=== PATIENT | male | born 1940 | race Caucasian/White ===

== ENCOUNTER 2017-03-30 10:03 | Outpatient (CLI) | payer MEDICARE ==
[2017-03-30 20:24] LABS: THYROID STIMULATING HORMONE 5.49 uIU/mL (0.34-5.60)
[2017-03-30 20:42] LABS: HEMOGLOBIN A1C 0.75 g/dL
== END 2017-03-30 10:04 | disposition home or self-care (01) ==
LOC: LAB.WCP 10:03
PROVIDERS: ATTEND Family Medicine
DX: G62.9 Polyneuropathy, unspecified (principal)
CPT/HCPCS: 36415; 82607; 82746; 83036; 84443

== ENCOUNTER 2017-06-23 14:49 | Emergency (ER) | payer MEDICARE ==
[2017-06-23 14:58] VITALS: BP 172/69
[2017-06-23] MEDS ORDERED: HYDROcod/ACETAM 5/325 MG TABLET PO STA (15:09)
--- NOTE | 2017-06-23 15:12 | ED Physician Documentation ---
History of Present Illness - Stated complaint Stated Complaint: RIGHT RIB PX - Chief complaint Chief Complaint: General - History obtained from History obtained from: Patient, Family () - History of Present Illness Timing: Other (He has had an ongoing cough for quite some time, not too bad and minimally productive. About 2 days ago he felt a severe pain during the cough which got even worse today. He is not short of breath per se. The pain is on the right chest wall and is worse with moving or deep breathing.) Review of Systems Constitutional: denies: Fever, Chills Nose: denies: Rhinorrhea / runny nose, Congestion Cardiac: reports: Chest pain / pressure. denies: Palpitations Respiratory: reports: Cough. denies: Dyspnea, Hemoptysis, Wheezing GI: denies: Abdominal Pain, Nausea, Vomiting PD PAST MEDICAL HISTORY - Past Medical History Cardiovascular: Hypertension, High cholesterol Respiratory: None Endocrine/Autoimmune: None GI: None : None HEENT: None Psych: None Musculoskeletal: None Derm: None - Past Surgical History General: Appendectomy Cardiovascular: CABG - Present Medications Home Medications: Ambulatory Orders Medication Instructions Recorded Confirmed Aspirin 81 mg PO DAILY 04/02/15 04/02/15 Felodipine [Felodipine ER] 1 tab PO DAILY 04/02/15 04/02/15 Finasteride 1 tab PO DAILY 04/02/15 04/02/15 Losartan/Hydrochlorothiazide 1 tab PO DAILY 04/02/15 04/02/15 [Losartan-Hctz 100-12.5 mg Tab] Lovastatin 1 tab PO DAILY 04/02/15 04/02/15 Metoprolol Succinate 1 tab PO DAILY 04/02/15 04/02/15 Terazosin [Hytrin] 1 tab PO DAILY 04/02/15 04/02/15 Albuterol Sulfate [Proair Hfa] 8.5 gm IH DAILY PRN 04/05/15 04/05/15 Azelastine HCl [Astelin] 137 mcg NS DAILY PRN 04/05/15 04/05/15 Fluticasone Propionate [Flovent 10.6 gm IH DAILY 04/05/15 04/05/15 Hfa] Loratadine [Alavert] 10 mg PO DAILY PRN 04/05/15 04/05/15 Multivit, Min No.21/Folic Acid 1 mg PO DAILY 04/05/15 04/05/15 [Supervite EC Caplet] Nitroglycerin [Nitrostat] 0.4 mg SL ONCE 04/05/15 04/05/15 HYDROcod/ACETAM 5/325 [[place] 5/325] 1 - 2 ea PO Q6H PRN #15 tablet 06/23/17 - Allergies Allergies/Adverse Reactions: Allergies Allergy/AdvReac Type Severity Reaction Status Date / Time erythromycin base Allergy Itching Verified 06/23/17 14:58 Penicillins Allergy Itching Verified 06/23/17 14:58 lisinopril AdvReac Unknown Verified 06/23/17 14:58 PD ED PE NORMAL - Vitals Vital signs reviewed: Yes - General General: Alert and oriented X 3, Other ([place] with deep breathing) - HEENT HEENT: PERRL, EOMI - Neck Neck: Supple, no meningeal sign, No bony TTP - Cardiac Cardiac: RRR, No murmur - Respiratory Respiratory: No respiratory distress, Clear bilaterally, Other (Very tender anterior right chest wall, may be rid 8, anterior axillary line.) - Abdomen Abdomen: Soft, Non tender - Extremities Extremities: Other (Minimal bilateral pitting pedal edema) - Neuro Neuro: Alert and oriented X 3, Normal speech - Psych Psych: Normal mood, Normal affect Results - Vitals Vitals: Vital Signs - 24 hr 06/23/17 14:55 Temperature 36.5 C Heart Rate 62 Respiratory 20 Rate Blood Pressure 172/69 H O2 Saturation 96 Oxygen O2 Source Room air - Rads (name of study) R ribs and chest Radiology: EMP read contemporaneously (no displaced rib frx) Departure - Departure Disposition: Home, Self Care Clinical Impression: Cough Chest wall muscle strain Qualifiers: Encounter type: initial encounter Qualified Code(s): S29.011A - Strain of muscle and tendon of front wall of thorax, initial encounter Condition: Good Record reviewed to determine appropriate education?: Yes Instructions: ED Contusion Chest Wall Prescriptions: HYDROcod/ACETAM 5/325 [[place] 5/325] 1 - 2 ea PO Q6H PRN #15 tablet PRN Reason: Pain Comments: Call your doctor to arrange a follow-up appointment, make the next available appointment. In the interim, return anytime if worse or if new symptoms develop. Your blood pressure was elevated today on check into the emergency department. This does not mean that you have hypertension, it is a common phenomenon to come to the emergency department and have elevated blood pressure. I recommend that you see your primary care physician within the week to have it rechecked when you are feeling better.
--- NOTE | 2017-06-23 15:39 | XRAY Report ---
EXAM: RIGHT RIB RADIOGRAPHY EXAM DATE: 06/23/2017 03:29 PM. CLINICAL HISTORY: R chest pain after cough. COMPARISON: Chest 07/04/2008. TECHNIQUE: 1 view of the chest and 2 views of the ribs. FINDINGS: Bones: Normal. No fracture or bone lesion. Lungs: No focal opacities. No pneumothorax. No pleural effusions. Mediastinum: Cardiomegaly. New sternotomy wires. IMPRESSION: Stable cardiomegaly. No acute findings are seen. No evidence for acute rib fracture. [facility] Referring Provider Line: [phone] SITE ID: [id number]
== END 2017-06-23 15:49 | disposition home or self-care (01) ==
LOC: ED 14:49
DX: S29.011A Strain of muscle and tendon of front wall of thorax, initial encounter (principal); X58.XXXA Exposure to other specified factors, initial encounter; R05 Cough; I10 Essential (primary) hypertension; E78.00 Pure hypercholesterolemia, unspecified; I25.10 Atherosclerotic heart disease of native coronary artery without angina pectoris; Z95.1 Presence of aortocoronary bypass graft; Z79.82 Long term (current) use of aspirin
CPT/HCPCS: 71101; 99283; A9270

== ENCOUNTER 2018-11-20 08:00 | Outpatient (CLI) | payer MEDICARE | END 2018-11-20 08:01 | disposition home or self-care (01) | LOC: LAB.WCP 08:00 | PROVIDERS: ATTEND Family Medicine | DX: I10 Essential (primary) hypertension (principal) | CPT/HCPCS: 36415; 82088; 84244 ==

== ENCOUNTER 2018-11-24 22:42 | Emergency (ER) | payer MEDICARE ==
--- NOTE | 2018-11-24 23:58 | ED Physician Documentation ---
PD HPI LOWER EXT INJURY - Stated complaint Stated Complaint: LFT LEG PX/RASH - Chief complaint Chief Complaint: Wound - History obtained from History obtained from: Patient - History of Present Illness PD HPI LOW EXT INJURY LOCATION: Left, Lower leg Type of injury: Other (No known injury.) - Additional information Additional information: The patient is a 78-year-old male who presents with swelling and erythema of his left lower leg. He first noticed it tonight when he took off his pants to go to bed. He denies any associated pain. He reports that 3 days ago he felt severely chilled and spent the next 2 days in bed. He felt better today, but developed the redness and swelling in his leg. He reports associated headache. He denies sore throat, abdominal pain, nausea or vomiting. He has had slight cough with scant sputum production. He denies dysuria, but has noticed dark malodorous urine. He denies history of similar symptoms in the past. Review of Systems Constitutional: reports: Chills Ears: denies: Tinnitus/ringing Nose: denies: Congestion Throat: denies: Sore throat Cardiac: denies: Chest pain / pressure Respiratory: reports: Cough (slight). denies: Dyspnea GI: denies: Abdominal Pain, Nausea, Vomiting : denies: Dysuria Skin: denies: Rash Musculoskeletal: reports: Extremity swelling (left lower leg). denies: Back pain, Extremity pain Neurologic: reports: Headache. denies: Focal weakness, Numbness PD PAST MEDICAL HISTORY - Past Medical History Past Medical History: Yes Cardiovascular: Hypertension, High cholesterol Respiratory: None Endocrine/Autoimmune: None GI: None : None HEENT: None Psych: None Musculoskeletal: None Derm: None - Past Surgical History Past Surgical History: Yes General: Appendectomy Cardiovascular: CABG - Present Medications Home Medications: Ambulatory Orders Medication Instructions Recorded Confirmed Aspirin 81 mg PO DAILY 04/02/15 11/24/18 Felodipine [Felodipine ER] 1 tab PO DAILY 04/02/15 11/24/18 Finasteride 1 tab PO DAILY 04/02/15 11/24/18 Losartan/Hydrochlorothiazide 1 tab PO DAILY 04/02/15 11/24/18 [Losartan-Hctz 100-12.5 mg Tab] Lovastatin 1 tab PO DAILY 04/02/15 11/24/18 Metoprolol Succinate 1 tab PO DAILY 04/02/15 11/24/18 Terazosin [Hytrin] 1 tab PO DAILY 04/02/15 11/24/18 Albuterol Sulfate [Proair Hfa] 8.5 gm IH DAILY PRN 04/05/15 11/24/18 Azelastine HCl [Astelin] 137 mcg NS DAILY PRN 04/05/15 11/24/18 Fluticasone Propionate [Flovent 10.6 gm IH DAILY 04/05/15 11/24/18 Hfa] Loratadine [Alavert] 10 mg PO DAILY PRN 04/05/15 11/24/18 Multivit, Min No.21/Folic Acid 1 mg PO DAILY 04/05/15 11/24/18 [Supervite EC Caplet] Nitroglycerin [Nitrostat] 0.4 mg SL ONCE 04/05/15 11/24/18 cephALEXin [Cephalexin] 500 mg PO QID #28 tablet 11/25/18 - Allergies Allergies/Adverse Reactions: Allergies Allergy/AdvReac Type Severity Reaction Status Date / Time erythromycin base Allergy Itching Verified 11/24/18 22:56 Penicillins Allergy Itching Verified 11/24/18 22:56 lisinopril AdvReac Unknown Verified 11/24/18 22:56 - Social History Does the pt smoke?: No Smoking Status: Never smoker Does the pt drink ETOH?: No Does the pt have substance abuse?: No - Immunizations Immunizations are current?: Yes - POLST Patient has POLST: No PD ED PE NORMAL - Vitals Vital signs reviewed: Yes (hypertensive) - General General: Alert and oriented X 3, Well developed/nourished - HEENT HEENT: Atraumatic, Pharynx benign - Neck Neck: Supple, no meningeal sign, No adenopathy, No JVD - Cardiac Cardiac: RRR - Respiratory Respiratory: No respiratory distress, Clear bilaterally - Abdomen Abdomen: Soft, Non tender, Other (Rotund abdomen.) - Back Back: No CVA TTP - Derm Derm: No rash - Extremities Extremities: Other (There is swelling, erythema, and slight warmth of the left lower extremity from the knee to the ankle. There is no calf tenderness. Distal neurovascular is intact.) - Neuro Neuro: Alert and oriented X 3, No motor deficit, No sensory deficit Results - Vitals Vitals: Vital Signs - 24 hr 11/24/18 11/25/18 22:50 01:18 Temperature 37 C Heart Rate 78 67 Respiratory 16 Rate Blood Pressure 188/77 H 174/72 H O2 Saturation 97 97 Oxygen O2 Source Room air - Labs Labs: Laboratory Tests 11/24/18 11/25/18 11/25/18 00:10 00:10 00:10 WBC 8.0 RBC 4.46 L Hgb 13.9 L Hct 39.7 L MCV 88.9 MCH 31.1 H MCHC 35.0 RDW 14.3 Plt Count 189 MPV 8.9 Neut # (Auto) 6.1 Lymph # (Auto) 1.2 L [place] # (Auto) 0.6 Eos # (Auto) 0.1 Baso # (Auto) 0.0 Absolute Nucleated RBC 0.01 Nucleated RBC % 0.1 Sodium 140 Potassium 3.6 Chloride 106 Carbon Dioxide 23 Anion Gap 11.0 BUN 29 H Creatinine 1.1 Estimated GFR (MDRD) 65 L Glucose 142 H Lactic Acid 1.0 Calcium 9.0 Total Bilirubin 0.9 AST 23 ALT 29 Alkaline Phosphatase 56 Total Protein 7.3 Albumin 4.0 Globulin 3.3 Albumin/Globulin Ratio 1.2 Lipase 24 Urine Color Urine Clarity Urine pH Ur Specific [place] Urine Protein Urine Glucose (UA) Urine Ketones Urine Occult Blood Urine Nitrite Urine Bilirubin Urine Urobilinogen Ur Leukocyte Esterase Ur Microscopic Review Urine Culture Comments 11/25/18 00:10 WBC RBC Hgb Hct MCV MCH MCHC RDW Plt Count MPV Neut # (Auto) Lymph # (Auto) Bay # (Auto) Eos # (Auto) Baso # (Auto) Absolute Nucleated RBC Nucleated RBC % Sodium Potassium Chloride Carbon Dioxide Anion Gap BUN Creatinine Estimated GFR (MDRD) Glucose Lactic Acid Calcium Total Bilirubin AST ALT Alkaline Phosphatase Total Protein Albumin Globulin Albumin/Globulin Ratio Lipase Urine Color YELLOW Urine Clarity CLEAR Urine pH 6.0 Ur Specific [place] <=1.005 Urine Protein NEGATIVE Urine Glucose (UA) NEGATIVE Urine Ketones NEGATIVE Urine Occult Blood NEGATIVE Urine Nitrite NEGATIVE Urine Bilirubin NEGATIVE Urine Urobilinogen 0.2 (NORMAL) Ur Leukocyte Esterase NEGATIVE Ur Microscopic Review NOT INDICATED Urine Culture Comments NOT INDICATED - Rads (name of study) venous duplex left leg Radiology: Prelim report reviewed, EMP read contemporaneously, See rad report (No evidence for DVT.) PD MEDICAL DECISION MAKING - ED course Complexity details: reviewed results, re-evaluated patient, considered differential, d/w patient, d/w family ED course: The patient's presentation is significant for cellulitis of the left lower extremity. Venous Doppler ultrasound reveals no evidence of deep venous thrombosis. The patient's physical examination does not suggest sepsis, and his white blood cell count is normal at 8.0, and his lactate is normal at 1.0. Treatment in the emergency department included administration of ceftriaxone 1 g IM. He is being discharged with a prescription for cephalexin. I discussed with him and his the expected course of illness, antibiotic treatment and outpatient follow-up, as well as potentially worrisome signs or symptoms that should prompt reevaluation in the emergency department. Departure - Departure Disposition: 01 Home, Self Care Clinical Impression: Cellulitis of left lower leg Condition: Stable Instructions: ED Infec Skin Cellulitis Follow-Up: Sourav Newman MD [Provider Admit Priv/Credential] - Prescriptions: cephALEXin [Cephalexin] 500 mg PO QID #28 tablet Comments: Keep your left leg elevated as much of the time as possible. Take cephalexin 4 times daily as prescribed. You can use Tylenol or ibuprofen if needed for pain or fever. Follow-up with your primary physician within 1 week. Call to schedule an appointment. Return to the emergency department if you develop increasing redness, swelling, fever with shaking chills, or otherwise worsening symptoms. Discharge Date/Time: 11/25/18 01:24
[2018-11-25 00:20] LABS: BASOPHILS % (AUTO) 0.5 %; EOSINOPHILS # (AUTO) 0.1 10^3/uL (0.0-0.7); EOSINOPHILS % (AUTO) 1.5 %; HGB - HEMOGLOBIN 13.9 g/dL (14.0-18.0); LYMPHOCYTES # (AUTO) 1.2 10^3/uL (1.5-3.5); LYMPHOCYTES % (AUTO) 14.9 %; MEAN CORPUSCULAR HEMOGLOBIN 31.1 pg (27.0-31.0); MEAN CORPUSCULAR VOLUME 88.9 fL (80.0-94.0); MEAN PLATELET VOLUME 8.9 fL (7.4-11.4); MONOCYTES # (AUTO) 0.6 10^3/uL (0.0-1.0); MONOCYTES % (AUTO) 7.3 %; NEUTROPHILS # (AUTO) 6.1 10^3/uL (1.5-6.6); NEUTROPHILS % (AUTO) 75.8 %; PLT - PLATELET COUNT 189 10^3/uL (130-450); RED BLOOD COUNT 4.46 10^6/uL (4.70-6.10); RED CELL DISTRIBUTION WIDTH 14.3 % (12.0-15.0)
[2018-11-25 00:23] LABS: BILIRUBIN,URINE NEGATIVE (NEGATIVE); GLUCOSE, URINE (UA) NEGATIVE (NEGATIVE); KETONES,URINE (UA) NEGATIVE (NEGATIVE); LEUKOCYTE ESTERASE, URINE NEGATIVE (NEGATIVE); NITRITE,URINE NEGATIVE (NEGATIVE); OCCULT BLOOD,URINE NEGATIVE (NEGATIVE); PROTEIN,URINE NEGATIVE (NEGATIVE); UROBILINOGEN,URINE 0.2 (NORMAL) E.U./dL (NORMAL)
[2018-11-25 00:24] LABS: CLARITY,URINE CLEAR (CLEAR)
[2018-11-25 00:30] LABS: ALBUMIN/GLOBULIN RATIO 1.2 (1.0-2.2); BILIRUBIN,TOTAL 0.9 mg/dL (0.2-1.0); CREATININE 1.1 mg/dL (0.6-1.2); TOTAL PROTEIN 7.3 g/dL (6.7-8.2)
--- NOTE | 2018-11-25 01:05 | Ultrasound Report ---
Reason: Swelling of left lower leg. Procedure Date: 11/25/2018 Accession Number: [id number] / [id number] Procedure: US - Duplex Ext Veins Left CPT Code: FULL RESULT: EXAM: LEFT LOWER EXTREMITY VENOUS ULTRASOUND EXAM DATE: 11/25/2018 12:17 AM. CLINICAL HISTORY: Swelling of left lower leg. COMPARISON: None. TECHNIQUE: Real-time sonographic vascular imaging was performed by the hand i blocker through the lower extremity utilizing both color-flow and Doppler spectral analysis. Multiple agency sales representative static images were saved for review. FINDINGS: Common Femoral Vein (CFV): Normal. CFV-GSV Junction: Normal. Profunda Femoral Vein (PFV): Normal. Femoral Vein (FV) Prox: Normal. Femoral Vein (FV) Mid: Normal. Femoral Vein (FV) Dist: Normal. Popliteal Vein: Normal. Posterior Tibial Veins: Normal. Peroneal Veins: Normal. Contralateral Right CFV: Normal. Other: None. IMPRESSION: No evidence for deep venous thrombosis. [facility]
[2018-11-25] MEDS ORDERED: LIDOCAINE 1% 2 ML VIAL MC ONE (01:10)
[2018-11-25] MEDS ORDERED: cefTRIAXone 1 GM VIAL IM STA (01:10)
[2018-11-25 01:20] VITALS: BP 174/72
== END 2018-11-25 01:24 | disposition home or self-care (01) ==
LOC: ED 22:42
DX: L03.116 Cellulitis of left lower limb (principal); R51 Headache; I10 Essential (primary) hypertension; Z79.82 Long term (current) use of aspirin
CPT/HCPCS: 36415; 80053; 81001; 81003; 83605; 83690; 85025; 87086; 96372; 99283

== ENCOUNTER 2019-07-29 16:30 | Outpatient (CLI) | payer MEDICARE | END 2019-07-29 23:59 | disposition home or self-care (01) | LOC: LAB.R 16:30 | PROVIDERS: ATTEND Physician Assistant Medical | DX: L03.116 Cellulitis of left lower limb (principal) | CPT/HCPCS: 87070; 87205 ==

== ENCOUNTER 2019-12-24 13:31 | Outpatient (CLI) | payer MEDICARE ==
--- NOTE | 2019-12-24 15:07 | SLEEP CARE CONSULTATION ---
History of Present Illness Service Date and Time: 12/24/2019 1331 Reason for Visit: Previously diagnosed sleep apnea, Re-establish care Chief Complaint: reports: Other (sleep apnea). denies: Insomnia Duration of Symptoms: unsure, came on gradually; diagnosed 9 years ago Usual bedtime: 10 PM Time it takes to fall asleep: 10 minutes or so Snores at night: Yes (positional or if mask doesn't seal well) Observed to quit breathing while asleep: Yes (previously by ) Sleeps alone due to snoring: Yes Number of times waking at night: 2 Reasons for waking at night: reports: Bathroom. denies: Choking, Snoring, Gasping for air, Pain Toss, Turn, or Twitch while sleeping: Yes Recalls having dreams: Yes Usually gets out of bed at: 6-7 AM Feels refreshed in the morning: Yes Morning headache: No Sleepy or fatigued during the day: Yes (very seldom) Ever fallen asleep while driving: No Takes day naps: No Dreams during day naps: No Prior sleep studies: Yes Year and Where: 2011 [facility] Additional HPI information: He has been using his CPAP nightly with good compliance but due to an insurance change he is unable to get filters for his machine. He uses a nasal pillow and states it is comfortable. He has not had any major health issues in the 8 years since his diagnosis and starting of treatment. - Parasomnia Symptoms Ever been unable to move upon waking from sleep: No Walks in sleep: No Talks in sleep: No Ever acted out dreams in sleep: No Ever felt weak in the knees when startled or emotional: No Bothered by creepy, crawly, restless sensations in legs: No Problems with memory or concentration: No CPAP Compliance Data Compliance data discussion: Patient did not bring in his memory chip from CPAP machine to get his compliance information. He reports seeing an average of 8.5-9 hours of sleep, pressure 10- 20 cmH2O, humidity 2 and heated hose 3. He states he can bring in the chip for download of information later today. Subjective Patient concerns: reports: aerophagia, mask leak noise (seldom, adjust during night), condensation in mask/hose (depends on season, adjusts as needed for humidity/heated hose), dry mouth, nose, throat (dry mouth, drink liquids help), other (uses nasal pillows). denies: mask discomfort, air blowing in eyes, nasal congestion, epistaxis Observed to snore while using device: Yes (rarely) Current pressure setting perceived as: comfortable On therapy, patient: reports: sleeping better, awakening more refreshed, being more awake and alert during the day, more rested overall. denies: drowsiness while driving Initial [place] Sleepiness Scale score: 2 Current [place] Sleepiness Scale score: 1 Past Medical History Past Medical History: reports: Hypertension, Congestive Heart Failure (quad bypass), Arthritis, Coronary Heart Disease, Arrythmia (spike in beat intermittently daily), Impotence, Asthma. denies: Diabetes, Stroke, Gout, Hypothyroidism, Fibromyalgia, Anemia, Anxiety, Depression, Emphysema, Mood disorder, GERD Social History The patient's occupation is a RE. Patient is and lives in [place]. Have you smoked in the past 12 months: No Cigarettes per day (20/pack): 20 Years of smokin Quit date: 1972 Smoking Pack Years: 13.0 Alcohol use: Yes Alcohol amount and frequency: 2 times a year Caffeine use: Yes Caffeine amount and frequency: 4 times a day Family History Family history of sleep disordered breathing: No Family Hx Sleep Apnea: Father: Snoring Allergies and Home Medications Known drug allergies: Yes (PCN) Drug allergies reviewed: Yes (erythromycin, lisinopril) Home medication list reviewed: Yes (see list) Review of Systems Review of systems same as previous: No Cardiovascular: reports: high blood pressure, irregular heart rate or pulse, leg or foot swelling. denies: palpitations, chest pain, have to sleep sitting up Respiratory: reports: chronic cough. denies: shortness of breath, wheeze Gastrointestinal: denies: heartburn, difficulty swallowing, abdominal pain Urinary: reports: frequency, urgency Neurological: denies: headaches, seizure, head trauma, speech dysfunction, gait or balance problems, fainting or unconsciousness Psychiatric: denies: Attention Deficit Hyperactivity, anxiety, depression, mood disorder Ear/Nose/Throat: reports: nasal congestion (uses nasal spray as needed), sinus problems, dry mouth/throat, wisdom teeth removed. denies: nose bleeds, hoarseness, injury to nose, tonsillectomy Endocrine: reports: increased urination. denies: thyroid disease, history of goiter, sluggishness, too hot or cold, excessive thirst, increased appetite, unexplained weakness Musculoskeletal: reports: back pain. denies: joint pain, joint swelling, muscle pain or cramping, mobility problems Immunologic: reports: sneezing, rash, itching, allergies to food or environment Physical Exam Heart Rate: 67 O2 Saturation: 97 Height: 5 ft 11 in Weight: 243 lb Body Mass Index: 33.9 BMI Classification: Obese Neck circumference: 18 (inches) Nasal exam: negative: erythema, excoriation, scabs, blood tinged nasal secretions, other HEENT: No craniofacial malformation Nostrils: patent to airflow Turbinates: normal Septum: midline Mouth and throat: normal Soft palate: normal Hard palate: normal Uvula: normal Uvula visualization: 50% Mallampati Class II Tongue: normal in size Tonsils: small Chin and jaw: normal size and position Neck: normal w/o lymphadenopathy or thyromegaly Heart: irregular rhythm Lungs: clear bilaterally Impression and Plan 1. Obstructive Sleep Apnea-Hypopnea Syndrome, as previously diagnosed. He continues to have occasional snore with CPAP but otherwise has more refreshed sleep, reduced daytime sleepiness and fatigue. He was last seen in 08/2011 after initial setup with improvement on 10-20 cmH2O pressure setting. He comes in today because he changed insurance companies and needs supplies for his machine as well as re-establishment of care. He is to adjust humidity and heated hose settings as needed for any condensation he finds in the hose or mask which he states usually depends on the current weather and he likes the settings he has overall. He is to bring in his machine compliance information chip to be read so we may determine if any changes need to be done. We will follow up with him once the information is in hand for evaluation. The pathophysiology of obstructive sleep apnea-hypopnea syndrome was discussed with the patient and health risks of cardiovascular and cerebrovascular disease if not treated. Patient agreed to plan. * Compliance information to be brought back into office for evaluation. * Prescription for supplies * Avoid alcohol, sedative and muscle relaxant around bedtime. * Attempt to lose weight. * Return for follow up dependant on compliance information. Visit Type: In Office Time Spent with Patient (minutes): 35 Provider Statement: I spent 100% of the Face to Face Visit with the patient with greater than 50% spent counseling the patient and coordination of care.
== END 2019-12-24 13:32 | disposition home or self-care (01) ==
LOC: SC 13:31
PROVIDERS: ATTEND Nurse Practitioner Family
DX: G47.33 Obstructive sleep apnea (adult) (pediatric) (principal); E66.9 Obesity, unspecified; Z68.33 Body mass index [BMI] 33.0-33.9, adult
CPT/HCPCS: 99205; G0463; 99212

== ENCOUNTER 2020-10-07 08:00 | Outpatient (CLI) | payer MEDICARE | END 2020-10-07 23:59 | disposition home or self-care (01) | LOC: LAB.N 08:00 | PROVIDERS: ATTEND Nurse Practitioner | DX: E11.621 Type 2 diabetes mellitus with foot ulcer (principal) | CPT/HCPCS: 87070; 87205 ==

== ENCOUNTER 2021-03-22 09:55 | Outpatient (CLI) | payer MEDICARE ==
[2021-03-22 10:32] VITALS: BP 148/82
--- NOTE | 2021-03-22 10:32 | SLEEP CARE CONSULTATION ---
Information from patient questionnaire entered by Jie Murphy. I have reviewed and concur with the information entered by Jie Murphy. This document represents the service I personally performed and the decisions made by me, Corina Rodriguez ARNP. History of Present Illness Service Date and Time: 03/22/2021 0955 Previous diagnosis: Severe, Obstructive Sleep Apnea-Hypopnea Syndrome AHI: 44.0 Reason for follow up: annual Equipment type: CPAP Equipment obtained from: [employer] (getting supplies as needed; needs new script) Mask style: Nasal Mask brand: Respironics (Wisp) Backup mask available: Yes (old mask) Last cushion change: yesterday Prior sleep studies: Yes Year and Where: 2011 [facility] Type of Sleep Study: Polysomnography HPI additional information: HERBIE LAL was diagnosed to have severe, AHI 44.0, obstructive sleep apnea- hypopnea syndrome and returned today for CPAP therapy annual follow-up. Sleep Study - Results Type of Sleep Study: Polysomnography Prior sleep studies: Yes Year and Where: 2011 [facility] CPAP Compliance Data - Data Reviewed with Patient Average duration of nightly device use: 8 hours 40 minutes Compliance rate %: 96.7 Current pressure setting (cmH2O): 10-20 Humidity settin Heated hose settin Average residual AHI: 4 Central apnea: 0.7 Obstructive apnea: 1.5 Average large leak: 37 minutes 59 seconds Subjective Patient concerns: reports: dry mouth, nose, throat (dry mouth). denies: aerophagia, mask discomfort, air blowing in eyes, mask leak noise, condensation in mask/hose, nasal congestion, epistaxis, other Observed to snore while using device: No Current pressure setting perceived as: comfortable On therapy, patient: reports: sleeping better, awakening more refreshed, being more awake and alert during the day, more rested overall. denies: drowsiness while driving Initial [place] Sleepiness Scale score: 2 Current [place] Sleepiness Scale score: 4 Allergies and Home Medications Home medication list reviewed: Yes (no changes) Review of Systems Review of systems same as previous: Yes (no changes) Physical Exam Blood Pressure: 148/82 (left arm) Cuff size: long Heart Rate: 86 O2 Saturation: 97 Height: 5 ft 11 in Weight: 235 lb Body Mass Index: 32.8 BMI Classification: Obese Impression and Plan 1. Obstructive Sleep Apnea-Hypopnea Syndrome, severe, with good treatment compliance and good apnea control. On CPAP therapy, the patient has better sleep quality and is more rested overall. Patient has some mouth dryness nearly every morning. Oral dryness can be reduced by adjusting humidity setting higher or heated hose lower or by adjusting both settings. Printed instructions given on how to change humidity and heated hose settings with rationale explaining why to change. Patient advised that chronic oral dryness can affect dental health and advised to follow up with dentist. In addition, there are oral dryness products that can be used to reduce dryness such as Biotene products, Dry mouth rinse and Xylomelts. Patient to discuss best option with dentist. Patient received a new Dreamstation 2 3 weeks ago but needs supplies. He needs a new prescription faxed over. He is very compliant with good control of his apnea. We will fax over prescription later today. Patient was encouraged to lose weight for their overall health and to reduce apneas. Patient's apnea severity and rationale for treatment to reduce apnea, improve sleep quality and reduce cardiovascular and cerebrovascular events was reviewed. I also reviewed the benefit of consistent device use of CPAP for hypertension, cardiac disease and arrhythmia. * Continue autoCPAP pressure at 10-20 cmH2O * Notify me if snoring with mask or feeling that the pressure is too much or too little * Attempt to lose weight * Call this office if any problems using CPAP * Return for follow up in 1 year, or sooner if concerns arise Counseling Topics: Spare mask, Weight loss health impact Visit Type: In Office Time Spent with Patient (minutes): 20 Provider Statement: I spent 100% of the Face to Face Visit with the patient with greater than 50% spent counseling the patient and coordination of care.
== END 2021-03-22 09:56 | disposition home or self-care (01) ==
LOC: SC 09:55
PROVIDERS: ATTEND Nurse Practitioner Family
DX: G47.33 Obstructive sleep apnea (adult) (pediatric) (principal); E66.9 Obesity, unspecified; Z68.32 Body mass index [BMI] 32.0-32.9, adult
CPT/HCPCS: 99213; G0463; 99212

== ENCOUNTER 2022-07-14 15:52 | Outpatient (CLI) | payer MEDICARE ==
--- NOTE | 2022-07-14 13:30 | SLEEP CARE CONSULTATION ---
Information from patient questionnaire entered by Feliberto Osman. I have reviewed and concur with the information entered by Feliberto Osman. This document represents the service I personally performed and the decisions made by me, Corina Rodriguez ARNP. History of Present Illness Service Date and Time: 07/14/2022 1300 Previous diagnosis: Severe, Obstructive Sleep Apnea-Hypopnea Syndrome AHI: 44.0 Reason for follow up: annual (LAST SEEN 03/2021) Equipment type: CPAP (MOORE Dreamstation 2 ) Equipment obtained from: [employer] (getting supplies as needed) Mask style: Nasal Mask brand: Resmed (Fx) Backup mask available: Yes (old mask) Last cushion change: rotates thru 3 cushions during the week Prior sleep studies: Yes Year and Where: 2011 [facility] Type of Sleep Study: Polysomnography HPI additional information: HERBIE LAL was diagnosed to have severe, AHI 44.0, obstructive sleep apnea- hypopnea syndrome and returns via video telehealth visit today for CPAP therapy annual follow-up. Sleep Study - Results Type of Sleep Study: Polysomnography Prior sleep studies: Yes Year and Where: 2011 [facility] CPAP Compliance Data - Data Reviewed with Patient Average duration of nightly device use: 9 HRS 7 MIN 27SEC Compliance rate %: 99.4 (01/13/2022-07/11/22; 179/180 days used) Current pressure setting (cmH2O): 10-20 Average residual AHI: 3.8 Central apnea: 1 Obstructive apnea: 1.4 Subjective Patient concerns: reports: mask leak noise (mask needs adjustment), dry mouth, nose, throat (dry mouth, sometimes). denies: aerophagia, mask discomfort, air blowing in eyes, condensation in mask/hose, nasal congestion, epistaxis Observed to snore while using device: No Current pressure setting perceived as: comfortable On therapy, patient: reports: sleeping better, awakening more refreshed, being more awake and alert during the day, more rested overall. denies: drowsiness while driving Initial [place] Sleepiness Scale score: 2 Current [place] Sleepiness Scale score: 3 (07/14/22) Allergies and Home Medications Drug allergies reviewed: Yes (as listed in EMR) Home medication list reviewed: Yes (no changes) Review of Systems Review of systems same as previous: Yes (no changes) Physical Exam Vital signs obtained and entered by: VIA PHONE FELIBERTO Hahn MA Height: 5 ft 11 in (PER PT) Weight: 217 lb (PER PT ) Body Mass Index: 30.2 BMI Classification: Obese Impression and Plan 1. Obstructive Sleep Apnea-Hypopnea Syndrome, severe, with good treatment compliance and good apnea control. On CPAP therapy, the patient has better sleep quality and is more rested overall. Patient has significant improvement of their sleep apnea and are satisfied with current CPAP therapy. Patient denies problems with oral dryness, nasal congestion, epistaxis, skin irritation or aerophagia. Patient's apnea severity and rationale for treatment to reduce apnea, improve sleep quality and reduce cardiovascular and cerebrovascular events was reviewed. I also reviewed the benefit of consistent device use of CPA P for hypertension, cardiac disease and arrhythmia. 2. Obesity, unspecified. Currently patients BMI is 30.2. He is trying to lose weight and has lost about 13 pounds. He is controlling portions and trying to get regular exercise. Obesity increases the risk of apnea, CPAP pressure requirements and overall health risks especially cardiovascular and diabetes. Thus patient is advised to continue to try to lose weight. * Continue auto CPAP pressure at 10-20 cmH2O * Update supplies * Notify me if snoring with mask or feeling that the pressure is too much or too little * Continue to try to lose weight * Call this office if any problems using CPAP * Return for follow up in 1 year, or sooner if concerns arise Counseling Topics: Spare mask, Weight loss health impact Visit Type: Telehealth Video Video Type: [facility] [place] Patient Location: Home Location of Provider: Office Patient agrees and consents to this telehealth visit type: Yes Patient agrees to have their insurance billed: Yes Time Spent with Patient (minutes): 22 Provider Statement: I spent 100% of the Telehealth Video Call with the patient with greater than 50% spent counseling the patient and coordination of care.
== END 2022-07-14 15:53 | disposition home or self-care (01) ==
LOC: SC 15:52
PROVIDERS: ATTEND Nurse Practitioner Family
DX: G47.33 Obstructive sleep apnea (adult) (pediatric) (principal); E66.9 Obesity, unspecified; Z68.30 Body mass index [BMI] 30.0-30.9, adult

== ENCOUNTER 2023-07-19 09:46 | Outpatient (CLI) | payer MEDICARE ==
--- NOTE | 2023-07-19 10:31 | Sleep Patient Instructions ---
Sleep Center Visit Summary - Patient Visit Information Reason for Visit: Annual visit - Patient Instructions Additional Instructions: You will continue with CPAP therapy with pressure changed to 10-12 cmH2O. A supply prescription will be updated with your DME. I have added an order to get an updated device. Please call our office to make compliance follow up appointment. We encourage you to continue to try to lose weight. Please follow up with the sleep care office one month after obtaining new CPAP. - Clinic Information Contact: [facility] [address] [place] [address] [email or web address] T: [phone]
--- NOTE | 2023-07-19 10:34 | SLEEP CARE CONSULTATION ---
Information from patient questionnaire entered by Lore Navarro. I have reviewed and concur with the information entered by Lore Navarro. This document represents the service I personally performed and the decisions made by me, Corina Rodriguez ARNP. History of Present Illness Service Date and Time: 07/19/2023 0946 Previous diagnosis: Severe, Obstructive Sleep Apnea-Hypopnea Syndrome AHI: 44.0 Reason for follow up: annual (Last seen 07/2022) Equipment type: CPAP (MOORE Dreamstation 2 s/u 06/2018) Equipment obtained from: [employer] (getting supplies as needed) Mask style: Nasal (over the nose) Mask brand: Respironics (Wisp) Backup mask available: Yes Last cushion change: 1 time a week Prior sleep studies: Yes Year and Where: 2011 [facility] Type of Sleep Study: Polysomnography HPI additional information: HERBIE LAL was diagnosed to have severe, AHI 44, obstructive sleep apnea-hypopnea syndrome and returned today for CPAP therapy annual follow-up. Sleep Study - Results Type of Sleep Study: Polysomnography Prior sleep studies: Yes Year and Where: 2011 [facility] CPAP Compliance Data - Data Reviewed with Patient Average duration of nightly device use: 8 hours 47 minutes Compliance rate %: 100 (180/180 days used) Current pressure setting (cmH2O): 10-20 (avg 10) Average residual AHI: 7.9 Compliance data discussion: His machine has no more than 2 days of use shown but he says he uses it every night, all night for 8-9 hours. Subjective Patient concerns: reports: air blowing in eyes (due to over ramping of pressure), mask leak noise (because of over ramping of pressure), dry mouth, nose, throat. denies: aerophagia, mask discomfort, condensation in mask/hose, nasal congestion, epistaxis Observed to snore while using device: No Current pressure setting perceived as: too high (ramping up too high and blowing mask off) On therapy, patient: reports: sleeping better, awakening more refreshed, being more awake and alert during the day, more rested overall. denies: drowsiness while driving Initial [place] Sleepiness Scale score: 2 Current [place] Sleepiness Scale score: 4 Allergies and Home Medications Known drug allergies: Yes (as listed) Drug allergies reviewed: Yes Home medication list reviewed: Yes (no changes) Allergy and home medication list: Allergies erythromycin base Allergy (Verified 07/14/22 13:00) Itching Penicillins Allergy (Verified 07/14/22 13:00) Itching lisinopril Adverse Reaction (Verified 07/14/22 13:00) Unknown Review of Systems Review of systems same as previous: Yes (no changes) Physical Exam Vital signs obtained and entered by: Corina Christian NP Blood Pressure: 147/74 Cuff size: long (right arm) Heart Rate: 70 O2 Saturation: 96 Height: 5 ft 11 in (PER PT) Weight: 235 lb Body Mass Index: 32.8 BMI Classification: Obese Impression and Plan 1. Obstructive Sleep Apnea-Hypopnea Syndrome, severe, with good treatment compliance and good apnea control. On CPAP therapy, the patient has better sleep quality and is more rested overall. His Dreamstation 2 is having problems. It has not been recording data, the modem is not transmitting and is ramping up without stopping at night. The patients CPAP is over 5 years old and of reasonable use. In addition, it is not transmitting or recording data, a sign of malfunction. Thus, the CPAP will be updated. The new CPAPs also have a better humidity system which could assist control of patients dryness symptoms. A DWO prescription will be made. Compliance guidelines for new device and follow up discussed. The patients pressure will be changed to autoCPAP 10-12 cmH20 for patient comfort. Patient advised to contact me if pressure change is uncomfortable so that it can be adjusted. Goals for apnea control discussed. Patient's apnea severity and rationale for treatment to reduce apnea, improve sleep quality and reduce cardiovascular and cerebrovascular events was reviewed. I also reviewed the benefit of consistent device use of CPAP for hypertension, cardiac disease and arrhythmia. 2. Obesity, unspecified. Currently patients BMI is 32.8. Obesity increases the risk of apnea, CPAP pressure requirements and overall health risks especially cardiovascular and diabetes. Thus patient is advised to lose weight. * Change auto CPAP pressure to 10-12 cmH2O * Update machine * Update supply prescription * Notify me if snoring with mask or feeling that the pressure is too much or too little * Attempt to lose weight * Call this office if any problems using CPAP * Return for follow up one month after obtaining new device, or sooner if concerns arise Adjust device pressure to (cmH2O): 10-12 Counseling Topics: Spare mask, Weight loss health impact Prescriptions: Auto CPAP, Device supplies Follow up with Sleep Care in: other (Compliance with new CPAP) Visit Type: In Office Time Spent with Patient (minutes): 28 Provider Statement: I spent 100% of the Face to Face Visit with the patient with greater than 50% spent counseling the patient and coordination of care.
[2023-07-19 10:42] VITALS: BP 147/74; O2SAT 96
== END 2023-07-19 09:47 | disposition home or self-care (01) ==
LOC: SC 09:46
PROVIDERS: ATTEND Nurse Practitioner Family
DX: G47.33 Obstructive sleep apnea (adult) (pediatric) (principal); E66.9 Obesity, unspecified; Z68.32 Body mass index [BMI] 32.0-32.9, adult
CPT/HCPCS: 99213; G0463; 99212

== ENCOUNTER 2023-09-13 10:19 | Outpatient (CLI) | payer MEDICARE ==
--- NOTE | 2023-09-13 10:01 | SLEEP CARE CONSULTATION ---
Information from patient questionnaire entered by Lakshmi Osman. I have reviewed and concur with the information entered by Lakshmi Osman. This document represents the service I personally performed and the decisions made by me, Corina Rodriguez ARNP. History of Present Illness Service Date and Time: 09/13/2023 1000 Previous diagnosis: Severe, Obstructive Sleep Apnea-Hypopnea Syndrome AHI: 44.0 Reason for follow up: first compliance after device update Equipment type: CPAP (RESMED Airsense 11, S/U 08/06/23) Equipment obtained from: [employer] (getting supplies as needed) Mask style: Nasal (over the nose) Mask brand: Respironics (Wisp; will be changing to a N20) Backup mask available: Yes Last cushion change: yesterday Prior sleep studies: Yes Year and Where: 2011 [facility] Type of Sleep Study: Polysomnography HPI additional information: HERBIE LAL was diagnosed to have severe, AHI 44, obstructive sleep apnea-hypopnea syndrome and returned today via video appointment for CPAP therapy first compliance after updating device follow-up. Sleep Study - Results Type of Sleep Study: Polysomnography Prior sleep studies: Yes Year and Where: 2011 [facility] CPAP Compliance Data - Data Reviewed with Patient Average duration of nightly device use: 9 HRS 13 MINS Compliance rate %: 83 (08/06/23-09/04/23; 25/30 days used) Current pressure setting (cmH2O): 10-12 Average residual AHI: 3.0 Central apnea: 0.4 Obstructive apnea: 1.1 Hypopnea: 1.3 Average large leak: 13.6 L/min Subjective Patient concerns: reports: nasal congestion (has sinus infection). denies: aerophagia, mask discomfort, air blowing in eyes, mask leak noise, condensation in mask/hose, dry mouth, nose, throat, epistaxis Observed to snore while using device: No Current pressure setting perceived as: too low (at onset of night) On therapy, patient: reports: sleeping better, awakening more refreshed, being more awake and alert during the day, more rested overall. denies: drowsiness while driving Initial [place] Sleepiness Scale score: 2 Current [place] Sleepiness Scale score: 6 (09/13/23) Allergies and Home Medications Known drug allergies: Yes (as listed) Drug allergies reviewed: Yes Home medication list reviewed: Yes (no changes) Allergy and home medication list: Allergies erythromycin base Allergy (Verified 09/11/23 09:07) Itching Penicillins Allergy (Verified 09/11/23 09:07) Itching lisinopril Adverse Reaction (Verified 09/11/23 09:07) Unknown Review of Systems Review of systems same as previous: Yes (NO CHANGE) Physical Exam Vital signs obtained and entered by: LAKSHMI Hahn MA Height: 5 ft 11 in (PER PT) Weight: 214 lb (PER PT) Body Mass Index: 29.8 BMI Classification: Overweight Impression and Plan 1. Obstructive Sleep Apnea-Hypopnea Syndrome, severe, with good treatment compliance and good apnea control. On CPAP therapy, the patient has better sleep quality and is more rested overall. He has significant improvement of his sleep apnea. He feels the ramp starting pressure is too low and would rather have it start at pressure. I turned off his ramp feature and it will now start at 10 cmH2O. He was instructed to let me know if it is too much and we can adjust that pressure for him. He voiced understanding. He denies any issues with mask. He is currently fighting a sinus infection causing nasal congestion. Patient's apnea severity and rationale for treatment to reduce apnea, improve sleep quality and reduce cardiovascular and cerebrovascular events was reviewed. I also reviewed the benefit of consistent device use of CPAP for hypertension, cardiac disease, arrhythmia. 2. Overweight, unspecified. Currently patients BMI is 29.8. Obesity increases the risk of apnea, CPAP pressure requirements and overall health risks especially cardiovascular and diabetes. Thus patient is advised to lose weight. * Continue auto CPAP pressure at 10-12 cmH2O * Notify me if snoring with mask or feeling that the pressure is too much or too little * Attempt to lose weight * Call this office if any problems using CPAP * Return for follow up in 12 months, or sooner if concerns arise Counseling Topics: Weight loss health impact Follow up with Sleep Care in: 1 year Visit Type: Telehealth Video Video Type: [place] Patient Location: Home Location of Provider: Office Patient agrees and consents to this telehealth visit type: Yes Time Spent with Patient (minutes): 14 Provider Statement: I spent 100% of the Telehealth Video Call with the patient with greater than 50% spent counseling the patient and coordination of care.
== END 2023-09-13 10:20 | disposition home or self-care (01) ==
LOC: SC 10:19
PROVIDERS: ATTEND Nurse Practitioner Family
DX: G47.33 Obstructive sleep apnea (adult) (pediatric) (principal)